=== PATIENT | male | born 1960 | race Caucasian/White ===

== ENCOUNTER 2017-02-28 08:55 | Observation (INO) | payer BC ==
[~2017-02-28] VITALS: Ht 172.7 cm; Wt 107.0 kg
[~2017-02-28 08:55] MED LIST: AMBI10TA PO; BACL10TA PO; HYDR-3580 PO; IBUP800T23 PO; LOSA100T PO
[2017-02-28] MEDS ORDERED: LACTATED RINGER'S 1000 ML IV PRN (09:15)
[2017-02-28] MEDS ORDERED: POVIDONE IODINE 5% (ANTISEPSIS KIT) 4 APPLICATIONS EACH NARE PRN (09:15)
[2017-02-28] MEDS ORDERED: SODIUM CHLORID 0.9% 500 ML IV PRN (09:15)
[2017-02-28] MEDS ORDERED: METOPROLOL TARTRATE 25 MG TAB PO PRN (09:15)
[2017-02-28] MEDS ORDERED: SODIUM CHLOR 0.9% 1000 ML INJ 1,000 ML IV SCH (09:15)
[2017-02-28] MEDS ORDERED: VANCOMYCIN HCL 1000 MG ON-CALL/NS 250 ML IV SCH ×2 (09:15)
[2017-02-28] MEDS ORDERED: INSULIN HUMAN REGULAR 1,000 UNITS/10 ML VIAL SQ PRN (09:15)
[2017-02-28] MEDS ORDERED: CHLORHEXIDINE GLUCONATE 2 % 1 PACK (2 CLOTHS) TOPICAL PRN (09:15)
[2017-02-28 09:26] VITALS: BP 129/78; PULSE 69; RESP 18; TEMP 97.8; O2SAT 97
[2017-02-28] MEDS ORDERED: ePHEDrine/NS 25 MG/5 ML SYR IV ONE (12:00)
[2017-02-28] MEDS ORDERED: PROPOFOL 200 MG/20 ML AMP IV ONE (12:00)
[2017-02-28] MEDS ORDERED: PHENYLEPH/NS 1000 MCG/10 ML SYR IV ONE (12:00)
[2017-02-28] MEDS ORDERED: LACTATED RINGER'S 1000 ML INJ 2,000 ML IV ONE (12:00)
[2017-02-28] MEDS ORDERED: ONDANSETRON HCL 4 MG/2 ML VIAL IV PUSH ONE (12:00)
[2017-02-28] MEDS ORDERED: GELFOAM SIZE 100 ONE (12:24)
[2017-02-28] MEDS ORDERED: BUPIVACAINE/EPINEPHRINE 0.25% 50 ML VIAL ONE (12:24)
[2017-02-28] MEDS ORDERED: THROMBIN (TOPICAL) 5,000 UNIT VIAL ONE (12:24)
[2017-02-28] MEDS ORDERED: MIDAZOLAM HCL 2 MG/2 ML VIAL ONE (12:44)
[2017-02-28] MEDS ORDERED: DEXAMETHASONE SOD PHOS 4 MG/ML VIAL ONE (12:44)
[2017-02-28] MEDS ORDERED: FAMOTIDINE 20 MG/2 ML VIAL ONE (12:44)
[2017-02-28] MEDS ORDERED: ACETAMINOPHEN 1000 MG/100 ML VIAL IV ONE (12:55)
[2017-02-28] MEDS ORDERED: fentaNYL CITRATE 250 MCG/5 ML AMP ONE ×2 (12:56→14:03)
[2017-02-28] MEDS ORDERED: ARTIFICIAL TEARS OPTH OINT 3.5 APPLIC/3.5 GM TUBO ONE (12:56)
[2017-02-28] MEDS ORDERED: ceFAZolin 2 GM PREMIX 50 ML ONE (13:14)
[2017-02-28] MEDS ORDERED: SODIUM CHLORIDE 0.9% FLUSH 5 ML FLUSH IVF PRN (14:00)
[2017-02-28] MEDS ORDERED: ACETAMINOPHEN 325 MG TAB PO PRN (14:00)
[2017-02-28] MEDS ORDERED: MORPHINE SULFATE 4 MG/ML INJ IV PUSH PRN ×2 (14:00)
[2017-02-28] MEDS ORDERED: ACETAMINOPHEN/HYDROcodone 325 MG/10 MG TAB PO PRN (14:00)
[2017-02-28] MEDS ORDERED: HYDR-3583 PO ×3 (14:03→18:56)
[2017-02-28] MEDS ORDERED: IBUPROFEN 800 MG TAB PO PRN (14:15)
[2017-02-28] MEDS ORDERED: ACETAMINOPHEN/HYDROcodone 325 MG/7.5 MG TAB PO PRN (14:15)
[2017-02-28] MEDS ORDERED: ZOLPIDEM TARTRATE 10 MG TAB PO PRN (14:15)
[2017-02-28] MEDS ORDERED: GENTAMICIN SULFATE 80 MG/2 ML VIAL IRRIGATION ONE (14:43)
[2017-02-28] MEDS ORDERED: methylPREDNISolone ACETATE 40 MG/ML VIAL ONE (16:03)
[2017-02-28] MEDS ORDERED: *morphine SULFATE 8 MG/ML PERIprocedure ONLY ONE ×3 (17:10→17:30)
[2017-02-28] MEDS: NS + KCL 20 MEQ INJ 1,000 ML IV SCH ×2 (17:18→21:55)
--- NOTE | 2017-02-28 17:40 | RADRPT ---
EXAM DATE/TIME: 02/28/2017 14:13 [place] COMPARISON: No previous studies available for comparison. INDICATIONS : Level Localization L3,L4 and L4,L5,L5,S1 laminectomy. MEDICAL HISTORY : None. SURGICAL HISTORY : None. ENCOUNTER: Initial ACUITY: 1 day PAIN SCORE: Non-responsive. LOCATION: Lumbar spine. FINDINGS: A single lateral view has been obtained. There is a surgical instrument directed towards the posterio r aspect of the L4 vertebral body. CONCLUSION: Lumbar localization with the probe directed towards L4. Jerrod Rae MD on February 28, 2017 at 17:38 Board Certified Radiologist. This report was verified electronically.
[2017-02-28] MEDS ORDERED: *HYDROmorphone PF 1 MG VIAL PERIprocedural Use ONLY ONE (17:41)
[2017-02-28] MEDS ORDERED: DO NOT ADM ANY ANTICOAGULANT DRUGS PRN (18:00)
--- NOTE | 2017-02-28 19:11 | PD.OP ---
Operative Report Date of Surgery: Feb 28, 2017 Preoperative Diagnosis: Lumbar spinal stenosis Postoperative Diagnosis: Lumbar spinal stenosis Procedure: L3-4, L4-5, L5-S1 decompressive hemilaminectomy, mesiofacetectomy, foraminotomy , microsurgical resection of the disk at L4-5 Anesthesia: general Surgeon: Horacio Keating Production Planner(s): Garcia Crandall Operation and Findings: INDICATIONS FOR THE SURGICAL PROCEDURE Mr Howard is a 56 year-old male who presented with intractable back pain and casi evidence of lower extremity poliradiculopathy. He was found to have significant spondylosis with spinal stenosis and failed maximum nonsurgical management including multiple modalities of conservative treatment as well as pain management interventions by an interventional pain specialist. A surgical decompression was indicated as a last resort. The [id number] details of the procedure, indications, alternatives, risks and potential complications were fully discussed with the patient. The patient fully understood. All the questions were answered. No guarantees were given. The patient voiced requesting the procedure and provided informed consents. The patient was offered the alternative of delaying the procedure and continuing with nonsurgical management. DETAILS OF THE SURGICAL PROCEDURE After the induction of general anesthesia, endotracheal intubation was performed. A Morales catheter, bilateral TERRENCE hose and sequential compression devices were placed and kept throughout the procedure. The patient was positioned prone on a Skip table over a Josh frame. All pressure points were carefully padded with eggcrate mattress. The eyes were tapped shut after ointment was applied by the anesthesiologist to prevent corneal abrasion. A Darlin hugger was placed over the exposed lower body to maintain control of the core body temperature. The lower lumbar region was prepped and draped in the usual sterile fashion. A spinal needle was placed on the paraspinal muscle and a cross-table lateral x-ray performed with a C-arm. The skin incision was made over the spinous process of L3 to S1 along the midline. Small subcutaneous bleeders were controlled with a bipolar. The subcutaneous tissue and thoracolumbar fascia was opened with the Bovie and the spinous process of L3, L4, L5 and S1 were exposed. Then, using a Almeida elevator and a Bovie a subperiosteal dissection was performed over the spinous process lamina and facet at L3-4, L:4-5, and L5-S1 on the left side. A microdiscectomy self-retaining retractor was placed and an instrument was placed underneath the lamina of L5, and another cross-table lateral x-ray performed for radiological confirmation of the level. At this point in the procedure the operating microscope was draped in the usual sterile fashion and brought to the field. The rest of the surgical procedure was performed using microsurgical dissection technique with exception of the closure. Once the level was confirmed, a TPS drill brought to the field and a hemilaminectomy was performed at L3-4, L:4-5, and L5-S1 on the left side in standard fashion using the AM-8 drill bit, exposing the ligamentum flavum. The superior free border of the ligamentum flavum was from the dura with a ligament dissector and the ligamentum flavum was carefully removed with a 3 mm thin footplate Kerrison. The ligament Flavum and facets were significantly hypertrophic resulting on mass effect on the dural sac. Then, the medial aspect of the facet was drilled and undermined and the exiting L4, L5 and S1 nerve root were identified and followed towards the foramen. A foraminotomy was performed with a 3 mm Kerrison. Then, the TPS drill was used to undermine the base of the spinous process, in order to carry out the decompression across the midline to the contralateral side. The ligamentum flavum across the midline was dissected from the dura with a ligament dissector and carefully removed with a 3 mm thin footplate Kerrison. An appropriate decompression of the dural sac and nerve root was achieved. Epidural veins located laterally to the dural sac were carefully coagulated with a bipolar and incised with microscissors. Gentle medial retraction of the dural sac allowed inspection of the disc space. The patient had a broad-based disc protusion which combined with the hypertrophic facets and ligamentun Flavum was producing significant stenosis with mass effect on the dural sac and nerve root. Microdiscectomy was then deemed necessary at L4-5. The annulus fibrosus was thoroughly coagulated with the bipolar and incised with a #10 blade. Then, a microdiscectomy was carried out in the standard fashion using straight and up-biting pituitary forceps. A reverse angle curet was used to push the extruded disc fragments into the disc space so they could be removed with pituitary forceps. Special attention was placed on the middle nerve root and axilla of the nerve root where disc fragments were found, which were carefully dissected and pushed into the disc space and removed with the Kerrison. A good decompression was achieved. The disc space was then irrigated with antibiotic solution. The incision was then thoroughly irrigated with antibiotic solution and hemostasis secured with the bipolar. A Valsalva maneuver failed to show any cerebrospinal fluid leak or bleeding. The incision was irrigated and closed in layers. 0 Vicryl with interrupted sutures was used to close the thoracolumbar fascia and superficial fascia. The subcutaneous tissue was closed with 3-0 Vicryl. The skin was closed with 4-0 running subcuticular Vicryl. Dermabond was applied to the skin. At the end of the procedure, the sponge, needle and instrument counts were all correct. Estimated blood loss was less than 100 cc. No blood transfusion was given. No intraoperative complications occurred. The patient received prophylactic antibiotics. The patient was then extubated and transferred to the recovery room in stable condition. Horacio Keating MD Feb 28, 2017 19:11
[2017-02-28] MEDS: DOCUSATE SODIUM 100 MG CAP PO SCH (19:52)
[2017-02-28] MEDS: SODIUM CHLORIDE 0.9% FLUSH 5 ML FLUSH IVF SCH (19:52)
[2017-02-28] MEDS: ACETAMINOPHEN/HYDROcodone 325 MG/10 MG TAB PO PRN (19:52)
[2017-02-28] MEDS: BACLOFEN 10 MG TAB PO SCH (19:52)
[2017-02-28 20:10] VITALS: BP 135/78; PULSE 77; RESP 17; TEMP 96.7; O2SAT 98
[2017-02-28 20:56] VITALS: O2SAT 96
[2017-02-28] MEDS: ceFAZolin 2 GM PREMIX 50 ML IV SCH (21:52)
[2017-03-01 00:15] VITALS: BP 133/62; PULSE 87; RESP 17; TEMP 97.3; O2SAT 97
[2017-03-01] MEDS: ACETAMINOPHEN/HYDROcodone 325 MG/10 MG TAB PO PRN ×5 (00:34→13:52)
[2017-03-01 04:15] VITALS: BP 142/65; PULSE 83; RESP 17; TEMP 96.6; O2SAT 98
[2017-03-01] MEDS: ceFAZolin 2 GM PREMIX 50 ML IV SCH ×2 (05:01→12:30)
[2017-03-01 07:47] VITALS: BP 120/65; PULSE 81; RESP 18; TEMP 95.9; O2SAT 97
[2017-03-01] MEDS ORDERED: LOSARTAN 50 MG TAB PO SCH (09:00)
[2017-03-01] MEDS: SODIUM CHLORIDE 0.9% FLUSH 5 ML FLUSH IVF SCH (09:00)
[2017-03-01] MEDS ORDERED: PANTOPRAZOLE SOD 40 MG DELAYED RELEASE TAB PO SCH (09:00)
[2017-03-01] MEDS: DOCUSATE SODIUM 100 MG CAP PO SCH (09:22)
[2017-03-01] MEDS: BACLOFEN 10 MG TAB PO SCH (09:22)
[2017-03-01] MEDS: NS + KCL 20 MEQ INJ 1,000 ML IV SCH (09:31)
[2017-03-01 09:53] VITALS: O2SAT 99
--- NOTE | 2017-03-01 10:40 | HHI.NSPN ---
History Chief Complaint: Mild incisional discomfort. Interval History Pt s/p L3-4, L4-5, L5-S1 decompressive hemilaminectomy, mesiofacetectomy, foraminotomy, microsurgical resection of the disk at L4-5 on 02/28/17. Pt states pain in leg resolved. Mild paresthesias on plantar aspect of left foot. Pt ambulates with a walker. Review of Systems General: Negative for: fever, chills, insomnia Respiratory: Negative for: shortness of breath, cough, sputum Cardiovascular: Negative for: chest pain Gastrointestinal: Negative for: nausea, vomitting, diarrhea, constipation Exam Results Vital Signs Date Time Temp Pulse Resp B/P Pulse Ox O2 Delivery O2 Flow Rate FiO2 03/01/17 09:53 99 03/01/17 07:47 95.9 81 18 120/65 02/28/17 20:56 21 02/28/17 18:00 Nasal Cannula 2 Intake and Output 02/28/17 02/28/17 02/28/17 07:59 15:59 23:59 Intake Total 2554 ml Output Total 975 ml Balance 1579 ml Physical Examination Resp: CTA bilaterally Heart: NSR no murmurs Abd: Soft positive bs Skin: Incision clean and dry. No signs of infection. new bandage placed. Muscle: Moves all 4 extremities well. Ambulates with a walker. Neuro: Pt awake and alert. Follows commands well. Speech clear and appropriate. Lab, Micro, Other Results 02/28/17 02/28/17 03/01/17 14:59 22:59 06:59 Intake Total 2554 ml 240 ml Output Total 975 ml 450 ml Balance 1579 ml -210 ml Intake Oral 480 ml 240 ml IV Total 474 ml Other 1600 ml Output Urine Total 900 ml 450 ml Estimated Blood Loss 75 ml Medical Decision Making Impression and Plan A: 56 y/o M s/p L3-4, L4-5, L5-S1 decompressive hemilaminectomy, medial facetectomy, foraminotomy, microsurgical resection of the disk at L4-[address] Zuri. P: Discharge pt home. Keep incision clean and dry. Follow up with Dr. Keating as instructed. Stewart Rubio Mar 01, 2017 10:40
[2017-03-01 11:31] VITALS: BP 113/62; PULSE 74; RESP 18; TEMP 97.3; O2SAT 97
--- NOTE | 2017-03-07 16:45 | HHI.DS ---
Discharge Summary Admission Date Feb 28, 2017 at 14:00 Discharge Date: Mar 01, 2017 Admitting Diagnosis s/p lumbar laminectomy (1) S/P lumbar laminectomy ICD Code: Z98.890 - Other specified postprocedural states Brief History Mr Howard is a 56 year-old male who presented with intractable back pain and casi evidence of lower extremity poliradiculopathy. He was found to have significant spondylosis with spinal stenosis and failed maximum nonsurgical management including multiple modalities of conservative treatment as well as pain management interventions by an interventional pain specialist. A surgical decompression was indicated as a last resort. Imaging Last Impressions Lumbar Spine X-Ray 02/28/17 0000 Signed Impressions: Service Date/Time: Tuesday, February 28, 2017 14:13 - CONCLUSION: Lumbar localization with the probe directed towards L4. Jerrod Rae MD Hospital Course Mr. Howard underwent a L3-4, L4-5, L5-S1 decompressive hemilaminectomy, mesiofacetectomy, foraminotomy, microsurgical resection of the disk at L4-5 Feb 28, 2017 for lumbar stenosis. His surgery went well without complications. He was discharged home in stable conditions. Pt Condition on Discharge: Stable Discharge Disposition: Discharge Home Discharge Instructions DIET: Follow Instructions for: As Tolerated, No Restrictions ACTIVITIES You can perform: Weight Bearing As Gracie Activities to Avoid: Lifting/Bending, Prolonged Standing, Strenuous Activity, Bathing, Driving New Medications: Hydrocodone-Acetaminophen (Hydrocodone-Acetaminophen) 10-325 mg Tab 1 TAB PO Q8HR PRN for PAIN 6-10 WHEN TOLERATING PO, #90 TAB 0 Refills Hydrocodone-Acetaminophen (Hydrocodone-Acetaminophen) 10-325 mg Tab 1 TAB PO Q8HR PRN for PAIN SCALE 1 TO 10, #90 TAB 0 Refills Continued Medications: Baclofen (Baclofen) 10 Mg Tab 10 MG PO BID for Muscle Spasm, TAB 0 Refills Hydrocodone-Acetaminophen (Hydrocodone-Acetaminophen) 7.5-325 mg Tab 1 TAB PO Q6H PRN for PAIN, #30 TAB 0 Refills Ibuprofen (Ibuprofen) 800 Mg Tab 800 MG PO Q6HR PRN for PAIN, #40 TAB 0 Refills Losartan (Losartan) 100 Mg Tab 100 MG PO DAILY for Blood Pressure Management, #30 TAB 0 Refills Zolpidem (Ambien) 10 Mg Tab 10 MG PO HS PRN for INSOMNIA, TAB 0 Refills Alecia Urrutia Mar 07, 2017 16:45
[2017-04-10] MEDS ORDERED: HYDR-3583 PO (12:03)
== END 2017-03-01 14:37 | disposition home or self-care (01) ==
LOC: HSDC 08:55 → HSDI 14:00 → N06B 18:19
PROVIDERS: ADMIT Neurological Surgery; ATTEND Neurological Surgery
DX: M48.06 Spinal stenosis, lumbar region (principal); M47.9 Spondylosis, unspecified; I10 Essential (primary) hypertension
CPT/HCPCS: 00630; 63047; 63048; 72100; 76000; 94150; 96365; 97163; G0378; G8987; G8988; J0131; J0690; J1030; J1100; J1170; J1580; J2250; J2270; J2370; J2405; J3010; J3370; J3480; J7050; J7120; L0627